=== PATIENT | male | born 2005 ===

== ENCOUNTER 2025-07-09 10:30 | Observation (INO) ==
[2025-07-09] MEDS ORDERED: IOPAMIDOL 100 ML BOTTLE IV ONE (10:31)
[2025-07-09 11:52] LABS: Basophils # (Auto) 0.02 K/mcL (0.00-0.30); Basophils % (Auto) 0.1 % (0.0-2.0); Eosinophils # (Auto) 0 K/mcL (0.00-0.70); Eosinophils % (Auto) 0 % (0.0-7.0); Hematocrit 42.3 % (40.1-51.0); Hemoglobin 15.4 g/dL (13.7-17.5); Lymphocytes # (Auto) 1.85 K/mcL (1.50-4.80); Lymphocytes % (Auto) 9.6 % (15.5-49.0); Mean Corpuscular HGB Conc 36.4 g/dL (31.0-36.0); Monocytes # (Auto) 1.79 K/mcL (0.10-0.90); Monocytes % (Auto) 9.3 % (1.0-12.0); Neutrophils % (Auto) 80.4 % (38.0-78.0); Platelet Count 221 K/mcL (140-440); RBC 4.63 M/mcL (4.63-6.08); WBC 19.3 K/mcL (4.5-11.0)
[2025-07-09] MEDS: fentaNYL 100 MCG/2 ML VIAL IV ONE (11:59)
[2025-07-09 12:11] LABS: ALT/SGPT 9 U/L (<40); AST/SGOT 17 U/L (<40); Albumin 4.7 gm/dL (3.2-5.2); Albumin/Globulin Ratio 1.4 (1.0-2.3); Alkaline Phosphatase 77 U/L (39-117); Anion Gap 16.0 (8.0-16.0); Bilirubin,Total 1.5 mg/dL (0.1-1.0); Blood Urea Nitrogen 12 mg/dL (6-20); Calcium 10.1 mg/dL (8.6-10.4); Carbon Dioxide 24 mmol/L (22-30); Chloride 95 mmol/L (96-108); Globulin 3.3 gm/dL (2.2-3.7); Glucose 107 mg/dL (70-105); Potassium 3.8 mmol/L (3.3-5.1); Sodium 135 mmol/L (133-145)
[2025-07-09] MEDS ORDERED: MIDAZOLAM 2 MG/2 ML VIAL ONE (12:58)
[2025-07-09] MEDS ORDERED: PROPOFOL 200 MG/20 ML VIAL IV ONE (12:59)
[2025-07-09] MEDS ORDERED: KETOROLAC 30 MG/ML VIAL ONE (12:59)
[2025-07-09] MEDS ORDERED: DEXAMETHASONE 10 MG/ML VIAL ONE (12:59)
[2025-07-09] MEDS ORDERED: ONDANSETRON 4 MG/2 ML VIAL ONE (12:59)
[2025-07-09] MEDS ORDERED: LIDOCAINE 2% PF 5 ML VIAL ONE (12:59)
[2025-07-09] MEDS ORDERED: GLYCOPYRROLATE 0.2 MG/ML VIAL IV ONE (12:59)
[2025-07-09] MEDS ORDERED: FAMOTIDINE/PF 20 MG/2 ML VIAL IV ONE (12:59)
[2025-07-09] MEDS ORDERED: SUCCINYLCHOLINE 200 MG/10 ML VIAL IV ONE (12:59)
[2025-07-09] MEDS: ceFAZolin 2 GM in DEXTROSE 5% IN WATER 50 ML IV SCH (13:09)
[2025-07-09 13:15] LABS: INR 1.1 (0.9-1.1); Prothrombin Time 15.3 sec (11.9-14.5)
[2025-07-09] MEDS ORDERED: HYDROmorphone 0.5 MG/0.5 ML SYRINGE ONE (13:36)
[2025-07-09] MEDS ORDERED: DEXMEDETOMIDINE HCL 200 MCG/2 ML VIAL ONE (13:38)
[2025-07-09] MEDS ORDERED: 0.9 % SODIUM CHLORIDE 100 ML IV ONE (13:38)
[2025-07-09] MEDS ORDERED: fentaNYL 100 MCG/2 ML VIAL ONE (13:53)
[2025-07-09 13:57] LABS: Bilirubin,Urine Negative (Negative); Color,Urine AMBER; Glucose,Urine (UA) Negative (Negative); Ketones,Urine 20 mg/dL (Negative); Leukocyte Esterase,Urine Negative /uL (Negative); Mucus,Urine MANY /hpf; PH,Urine 5.0 (5.0-9.0); Protein,Urine 30 mg/dL (Negative); Specific Gravity,Urine 1.036 (1.000-1.035); Urobilinogen,Urine 4.0 mg/dL
[2025-07-09] MEDS ORDERED: SUGAMMADEX SODIUM 200 MG/2 ML VIAL IV ONE (14:59)
[2025-07-09] MEDS ORDERED: ONDANSETRON 4 MG ODT TABLET SL PRN (15:10)
[2025-07-09] MEDS ORDERED: HYDROmorphone 0.5 MG/0.5 ML SYRINGE IV PRN (15:16)
[2025-07-09] MEDS ORDERED: fentaNYL 100 MCG/2 ML VIAL IV PRN (15:16)
[2025-07-09] MEDS ORDERED: DROPERIDOL 5 MG/2 ML VIAL IV PRN (15:16)
[2025-07-09] MEDS ORDERED: IPRATROPIUM/ALBUTEROL 3 ML AMPUL.NEB NEB PRN (15:16)
[2025-07-09] MEDS ORDERED: ACETAMINOPHEN 1,000 MG/100 ML BAG IV PRN (15:18)
[2025-07-09] MEDS: ACETAMINOPHEN 1,000 MG/100 ML BAG IV SCH (15:29)
[2025-07-09] MEDS: 0.9 % SODIUM CHLORIDE 1,000 ML IV SCH (16:18)
[2025-07-09] MEDS: PIPERACILLIN SODIUM/TAZOBACTAM 3.375 GM in DEXTROSE 5% IN WATER 50 ML IV ONE (16:18)
[2025-07-09] MEDS: LACTATED RINGERS 1,000 ML IV SCH (16:20)
[2025-07-09] MEDS: ONDANSETRON 4 MG/2 ML VIAL IV PRN (16:30)
[2025-07-09] MEDS ORDERED: PIPERACILLIN SODIUM/TAZOBACTAM 3.375 GM in DEXTROSE 5% IN WATER 50 ML IV SCH (20:00)
[2025-07-09] MEDS: PIPERACILLIN SODIUM/TAZOBACTAM 3.375 GM in DEXTROSE 5% IN WATER 100 ML IV SCH (20:30)
[2025-07-09] MEDS: DOCUSATE SODIUM 100 MG CAPSULE PO SCH (22:03)
[2025-07-09] MEDS: SENNOSIDES 1 TABLET PO SCH (22:03)
[2025-07-09] MEDS: 0.9 % SODIUM CHLORIDE 10 ML SYRINGE IV SCH (22:09)
[2025-07-10 06:49] LABS: RBC Morphology NORMAL (Normal)
[2025-07-10 06:50] LABS: ALT/SGPT 7 U/L (<40); AST/SGOT 15 U/L (<40); Albumin 3.8 gm/dL (3.2-5.2); Albumin/Globulin Ratio 1.4 (1.0-2.3); Alkaline Phosphatase 60 U/L (39-117); Anion Gap 12.0 (8.0-16.0); Bilirubin,Total 0.7 mg/dL (0.1-1.0); Blood Urea Nitrogen 9 mg/dL (6-20); Calcium 9.1 mg/dL (8.6-10.4); Carbon Dioxide 22 mmol/L (22-30); Chloride 98 mmol/L (96-108); Globulin 2.7 gm/dL (2.2-3.7); Glucose 158 mg/dL (70-105); Hematocrit 35.2 % (40.1-51.0); Hemoglobin 12.8 g/dL (13.7-17.5); Mean Corpuscular HGB Conc 36.4 g/dL (31.0-36.0); Platelet Count 209 K/mcL (140-440); Potassium 3.8 mmol/L (3.3-5.1); RBC 3.87 M/mcL (4.63-6.08); Sodium 132 mmol/L (133-145); WBC 16.7 K/mcL (4.5-11.0)
[2025-07-10] MEDS: ENOXAPARIN 40 MG/0.4 ML SYRINGE SQ SCH (08:19)
== END 2025-07-10 12:53 | disposition home or self-care (01) ==
LOC: ED 10:30 → SSSU 13:01 → MEDSUR 13:01 → SSSU 13:13
PROVIDERS: ADMIT Surgery; ATTEND Surgery
PROC: LAPAPPY (ICD-10-PCS; 2025-07-09 13:28)